=== PATIENT | male | born 1980 | race Caucasian/White ===

== ENCOUNTER 2025-02-16 13:19 | Outpatient (CLI) | payer OTHER, SELFPAY ==
--- OUTSIDE RECORDS SUMMARY | 2025-02-16 14:20 | XMS_ITS | Encounter Summary ---
Author Organization [facility] Address [facility] [place] [address] Care Team Providers Care Livestock Nutrition Territory Manager Name Role Phone Non-Staff, Provider Primary Care Provider Narinder ravi Encounter Details Date Type Department Care Team (Late st Contact Info) Description 01/28/2025 Prep for Procedure [facility] [place] [address], [address] [place] [address] Owen Marmolejo MD [address] [place] [address] Social History Tobacco Use Types Packs/Day Years Used Date Smoking Tobacco: Never Smokeless Tobacco: Never Alcohol Use Standard Drinks/Week Comments Not Currently 0 (1 standard drink = 0.6 oz pur e alcohol) Sex and Gender Information Value Date Recorded Sex Assigned at Male 01/05/2025 10:37 AM PMP PROJECT MANAGER Legal Sex Male 1:39 PM CDT Gender Identity Not on file Sexual Orientation Not on file documented as of this encounter Plan of Treatment Not on file documented as of this encounter Visit Diagnoses Not on filedocumented in this encounter Care Teams Livestock Nutrition Territory Manager Relationship Specialty Start Date End Date Non-Staff, Provider PCP - General UNKNOWN PHYSICIAN SPECIALTY 01/05/25 documented as of this encounter
--- OUTSIDE RECORDS SUMMARY | 2025-02-16 14:20 | XMS_ITS | Clinical Summary ---
Author Organization [facility] Address [facility] [place] [address] Care Team Providers Care Intermodal Customer Service Name Role Phone Non-Staff, Provider Primary Care Provider Unavai lable Allergies No known active allergies Medications pantoprazole EC (PROTONIX) 20 MG tablet Take 1 tablet (20 mg total) by mouth daily. 30 tablet 01/05/2025 Active traMADol (ULTRAM) 50 MG tablet Take 1 tablet (50 mg total) by mouth. 01/19/2025 Active Active Problems Problem Noted Date Diagnosed Date Melena 01/25/2025 Encounters Date Type Department Care Team Description 02/04/2025 Telephone [facility] General Surgery - [place] [address], [address] [place] [address] Owen Gama MD Results 02/01/2025 1:24 PM CDT Anesthesia Event [facility] [address] [place] [address] Izaiah Puente, Danny Land MD 02/01/2025 12:34 PM CDT - 02/01/2025 12:49 PM CDT Surgery [facility] [address] [place] [address] Owen Gama MD EGD WITH BIOPSIES ANTRUM AND GE JUNCTION 02/01/2025 11:48 AM CDT - 02/01/2025 2:30 PM CDT Hospital Encounter [facility] [address] [place], [place] [address] Owen Gama MD Discharge Disposition: Home or Self Care (Routine Discharge) 02/01/2025 Travel 01/28/2025 Prep for Procedure [facility] General Surgery - [place] [address], [address] [place] [address] Owen Gama MD 01/25/2025 Travel 01/25/2025 Telephone [facility] General Surgery - [place] [address] [place] [address], [address] [place] [address] Owen Gama MD Schedule Surgery 01/25/2025 Prep for Procedure [facility] Surgery - [place] [address] [place] [address], [address] [place] [address] Owen Gama MD 01/05/2025 11:26 AM REVENUE ACCOUNTANT - 01/05/2025 2:44 PM REVENUE ACCOUNTANT Emergency [facility] [place] [address] Bradley Mcclure, ALIS Blood In Stool Discharge Disposition: Home or Self Care (Routine Discharge) 01/05/2025 Transcribe Orders [facility] Pre Access Team [facility] [place] [address] Emmanuel Palacio PA-C 01/05/2025 Travel from Last 3 Months Family History Medical History Relation Comments Hypertension Father Relation Status Comments Father Social History Tobacco Use Types Packs/Day Years Used Date Smoking Tobacco: Never Smokeless Tobacco: Never Tobacco Cessation:Counseling Given: Not Answered Alcohol Use Standard Drinks/Week Comments Not Currently 0 (1 standard drink = 0.6 oz pur e alcohol) Sex and Gender Information Value Date Recorded Sex Assigned at Male 01/05/2025 10:37 AM REVENUE ACCOUNTANT Legal Sex Male 1:39 PM CDT Gender Identity Not on file Sexual Orientation Not on file Last Filed Vital Signs Vital Sign Reading Time Taken Comments Blood Pressure 119/83 02/01/2025 2:15 PM CDT Pulse 80 02/01/2025 2:15 PM CDT Temperature 36.6 C (97.8 F) 02/01/2025 2:00 PM CDT Respiratory Rate 18 02/01/2025 2:15 PM CDT Oxygen Saturation 97% 02/01/2025 2:15 PM CDT Inhaled Oxygen Concentration - - Weight 74.8 kg (165 lb) 02/01/2025 12:03 PM CDT Height 167.6 cm (5' 6) 02/01/2025 12:03 PM CDT Body Mass Index 26.63 02/01/2025 12:03 PM CDT Plan of Treatment Health Maintenance Due Date Last Done Comments Annual Physical 1985 Hepatitis C 2000 COVID-19 Vaccine (2 - season) 2024 03/23/2021 PHQ-2 (Physician [employer] [facility]) 11/04/2024 DTaP, Tdap and Td Vaccines (2 - Td or Tdap) 01/05/2025 01/05/2015, 01/08/2009, 01/18/2003 Hepatitis B Vaccines Completed 09/07/2003, 02/15/2003, 01/18/2003, Additional history exists Meningococcal Vaccine Aged Out 01/05/2015, 003 No longer eligible based on patient's age to complete this topic HPV Vaccines Aged Out No longer eligi ble based on patient's age to complete this topic Meningococcal B Vaccine Aged Out No l onger eligible based on patient's age to complete this topic Pneumococcal Vaccine: Pediatrics (0 to 5 Years) and At-Risk Patients (6 to 49 Years) Aged Out No longer eligible based on patient's age to complete this topic RSV Immunizations Under 20 Months Aged Out No longer eligible based on patient's age to complete this topic Procedures Procedure Name Priority Date/Time Associated Diagnosis Comments UPPER GI ENDOSCOPY,BIOPSY 02/01/2025 1:24 PM CDT Melena EGD Routine 02/01/2025 11:52 AM CDT PATHOLOGY Routine 02/01/2025 12:[address] ABD+PEL W CON STAT 01/05/2025 1:29 PM REVENUE ACCOUNTANT LACTIC ACID W REFLEX (SEPSIS) STAT 01/05/2025 12:16 PM REVENUE ACCOUNTANT LIPASE STAT 01/05/2025 12:16 PM REVENUE ACCOUNTANT COMPREHENSIVE METABOLIC PANEL STAT 01/05/2025 12:16 PM REVENUE ACCOUNTANT CBC W/DIFF AUTOMATED STAT 01/05/2025 12:16 PM REVENUE ACCOUNTANT US TESTICULAR W DOPPLER STAT 01/05/2025 12:14 PM REVENUE ACCOUNTANT from Last 3 Months Results * Pathology (02/01/2025 12:00 AM CDT) PATHOLOGY [facility] Department of Laboratory Medicine [address] [place] [address] , extension [phone] Pathology Report Surgical Pathology Report Name: PEEWEE KHAN Specimen #: [id number] Age: 1 1980 (Age: 44) Location: [facility] Sex: M Procedure Date: 02/01/2025 Hospital #: [id number] Date Received: 02/02/2025 Date Reported: 02/03/2025 Provider: OWEN GAMA MD Source: A: Antrum, biopsies B: GE junction, biopsies Clinical History: Melanoma Postoperative Diagnosis: Rule out H. pylori FINAL DIAGNOSIS: A. Stomach, antrum, biopsies: -Gastric antral and body type mucosa with no significant histopathologic abnormality. -No Helicobacter pylori organisms are identified. B. Esophagus, gastroesophageal junction, biopsies: -Squamocolumnar junctional mucosa with patchy chronic inflammation and mild reactive changes. -Negative for intestinal metaplasia. Gross Description: A. Received in formalin, labeled with a patient label and as antrum biopsies, are 2 portions of pink-owen soft tissue that are 0.2 and 0.3 cm in greatest dimension. The specimen is entirely submitted in cassette A1. B. Received in formalin, labeled with a patient label and as GE junction biopsies, are 2 portions of pink-owen soft tissue that are both 0.2 cm in greatest dimension. The specimen is entirely submitted in cassette B1. Gross examination (when applicable), interpretation, and sign out were performed at [facility], [address] [place] [address]. Electronically Signed Out JULIANA GARCIA MD [facility] TISSUE STOMACH STRUCTURE / Unknown 02/01/2025 1:30 PM CDT Tissue specimen (specimen) STOMACH STRUCTURE / Unknown 02/01/2025 1:32 PM CDT Owen Gama MD PATHOLOGY/CYTOLOGY ORDERABL ES Final Result [facility] [address] [place] [address], [phone] * CT ABD+PEL W CON (01/05/2025 1:29 PM REVENUE ACCOUNTANT) Anatomical Region Laterality Modality Abdomen Computed Tomogra phy 01/05/2025 1:32 PM REVENUE ACCOUNTANT Impressions 01/05/2025 1:40 PM REVENUE ACCOUNTANT Impression: 1. No acute other convincing localizing findings seen to provide a potential explanation for the patient's symptoms on this study 2. Colonic diverticulosis without inflammatory changes of acute diverticulitis. No other significant gastrointestinal tract finding. 3. Multiple hepatic lesions that may represent a combination of the flash filling and possible appearing hemangiomas; the largest lesion measuring 4.4 cm has a slightly atypical enhancement pattern on this single phase study. Recommend confirmation, further workup with MRI abdomen with contrast. 4. Advanced L4-5, moderate L5-S1 disc degeneration, moderately severe left hip osteoarthritis and right hip total arthroplasty. 5. Other nonemergent, incidental, and potential chronic findings as discussed in the report body above. Ordered By: BRADLEY MCCLURE Interpreted By: Sudhir Hare MD, 01/05/2025 1:32 PM Narrative 01/05/2025 1:40 PM REVENUE ACCOUNTANT [facility] [address] [place], [place] [address] Examination: CT abdomen and pelvis with IV contrast. Exam Date/Time: 01/05/2025 1:23 PM Indication: 44 male. blood in stool Comparison: Ultrasound scrotum 01/05/2025 Technique: Computed tomography of the abdomen and pelvis performed following uneventful intravenous administration of 100 mL Isovue-300 contrast. A dose lowering technique was used for this procedure, which may include, but is not limited to, dose reduction technique, automated exposure control, the use of iterative reconstruction, and ALARA (As Low As Reasonably Achievable) / Image Gently techniques. CT Findings: LOWER CHEST Normal cardiac size. No pericardial or pleural effusion. Clear lung bases. UPPER ABDOMEN Liver and bile ducts: Normal size contour and enhancement. Right hepatic dome 1.2 cm and larger 4.4 cm hepatic segment 4B hypoenhancing lesions a. These probably represent hemangiomas although larger lesion is slightly atypical enhancement pattern on this study and further imaging workup is recommended. A more inferior right hepatic lobe 1.4 cm hyperenhancing focus may represent a flash filling hemangioma. Hepatic and portal venous systems are patent. No intra or extrahepatic biliary tree dilatation. Gallbladder: Present and unremarkable. No calcific cholelithiasis or inflammation. Pancreas: Normal. Spleen: Normal. RETROPERITONEUM Adrenals: Normal. Kidneys: Bilateral normal size, contour and enhancement. No suspicious focal finding, collecting system obstruction or perinephric stranding. Lymph nodes: No lymphadenopathy in the abdomen or pelvis. BOWEL AND PERITONEUM Bowel: Normal in caliber and wall thickness. Normal noninflamed appendix. Distal left and sigmoid colon diverticulosis without inflammatory changes of acute diverticulitis. Free air or fluid: None. VASCULATURE Unremarkable abdominal aorta. No atherosclerosis. No aneurysm. Mesenteric and visceral branches are patent. PELVIS History chiropractic from right total hip arthroplasty. Unremarkable nondistended urinary bladder. Few small pelvic phlebolithic calcifications. BONES/SOFT TISSUES Right total hip arthroplasty. Moderately severe left hip osteoarthritis. Lumbar spine straightening with moderately severe L4-5 and moderate L5-S1 disc degeneration. No concerning focal osteolytic or blastic lesion. Procedure Note Sudhir Hare MD - 01/05/[address] [address] Examination: CT abdomen and pelvis with IV contrast. Exam Date/Time: 01/05/2025 1:23 PM Indication: 44 male. blood in stool Comparison: Ultrasound scrotum 01/05/2025 Technique: Computed tomography of the abdomen and pelvis performedfollowing uneventful intravenous administration of 100 mL Isovue-300contrast. A dose lowering technique was used for this procedure, which mayinclude, but is not limited to, dose reduction technique, automatedexposure control, the use of iterative reconstruction, and ALARA (As LowAs Reasonably Achievable) / Image Gently techniques. CT Findings: LOWER CHEST Normal cardiac size. No pericardial or pleural effusion. Clear lungbases. UPPER ABDOMEN Liver and bile ducts: Normal size contour and enhancement. Right hepaticdome 1.2 cm and larger 4.4 cm hepatic segment 4B hypoenhancing lesions a.These probably represent hemangiomas although larger lesion is slightlyatypical enhancement pattern on this study and further imaging workup isrecommended. A more inferior right hepatic lobe 1.4 cm hyperenhancingfocus may represent a flash filling hemangioma. Hepatic and portal venous systems are patent. No intra or extrahepaticbiliary tree dilatation. Gallbladder: Present and unremarkable. No calcific cholelithiasis orinflammation. Pancreas: Normal. Spleen: Normal. RETROPERITONEUM Adrenals: Normal. Kidneys: Bilateral normal size, contour and enhancement. No suspiciousfocal finding, collecting system obstruction or perinephric stranding. Lymph nodes: No lymphadenopathy in the abdomen or pelvis. BOWEL AND PERITONEUM Bowel: Normal in caliber and wall thickness. Normal noninflamed appendix.Distal left and sigmoid colon diverticulosis without inflammatory changesof acute diverticulitis. Free air or fluid: None. VASCULATURE Unremarkable abdominal aorta. No atherosclerosis. No aneurysm. Mesentericand visceral branches are patent. PELVIS History chiropractic from right total hip arthroplasty. Unremarkablenondistended urinary bladder. Few small pelvic phlebolithiccalcifications. BONES/SOFT TISSUES Right total hip arthroplasty. Moderately severe left hip osteoarthritis. Lumbar spine straightening with moderately severe L4-5 and moderate L5-S1disc degeneration. No concerning focal osteolytic or blastic lesion. Impression: 1. No acute other convincing localizing findings seen to provide apotential explanation for the patient's symptoms on this study 2. Colonic diverticulosis without inflammatory changes of acutediverticulitis. No other significant gastrointestinal tract finding. 3. Multiple hepatic lesions that may represent a combination of the flashfilling and possible appearing hemangiomas; the largest lesion measuring4.4 cm has a slightly atypical enhancement pattern on this single phasestudy. Recommend confirmation, further workup with MRI abdomen withcontrast. 4. Advanced L4-5, moderate L5-S1 disc degeneration, moderately severe lefthip osteoarthritis and right hip total arthroplasty. 5. Other nonemergent, incidental, and potential chronic findings asdiscussed in the report body above. Ordered By: BRADLEY MCCLURE Interpreted By: Sudhir Hare MD, 01/05/2025 1:32 PM Bradley Mcclure TAILER OUT CT Final Result * LACTIC ACID W REFLEX (SEPSIS) (01/05/2025 12:16 PM REVENUE ACCOUNTANT) LACTIC ACID VENOUS 1.2 0.4 - 2.0 MMOL/L 01/05/2025 12:53 PM REVENUE ACCOUNTANT [facility] 01/05/2025 12:1 6 PM REVENUE ACCOUNTANT Bradley Mcclure TAILER OUT LABORATORY Final Result [facility] [address] [place] [address], [place] [phone] * COMPREHENSIVE METABOLIC PANEL (01/05/2025 12:16 PM REVENUE ACCOUNTANT) GLUCOSE 96 70 - 99 MG/DL 01/05/2025 1:05 PM REVENUE ACCOUNTANT [facility] BUN 10 7 - 18 MG/DL 01/05/2025 1:05 PM REVENUE ACCOUNTANT [facility] CREATININE S/P/B 1.00 0.7 - 1.3 MG/DL 01/05/2025 1:05 PM REVENUE ACCOUNTANT [facility] SODIUM S/P/B 136 136 - 145 MMOL/L 01/05/2025 1:05 PM REVENUE ACCOUNTANT [facility] POTASSIUM S/P/B 3.8 3.5 - 5.1 MMOL/L 01/05/2025 1:05 PM [facility] CHLORIDE S/P/B 102 97 - 115 MMOL/L 01/05/2025 1:05 PM [facility] CO2 31.0 21 - 32 MMOL/L 01/05/2025 1:05 PM [facility] CALCIUM S/P/B 9.2 8.5 - 10.1 MG/DL 01/05/2025 1:05 PM [facility] BILIRUBIN TOTAL S/P/B 0.4 0.2 - 1.2 MG/DL 01/05/2025 1:05 PM [facility] Comment: THIS ASSAY IS NOT RECOMMENDED FOR PATIENTS UNDERGOING TREATMENT WITH ELTROMBOPAG DUE TO THE POTENTIAL FOR FALSELY ELEVATED RESULTS. TOTAL PROTEIN S/P/B 7.9 6.4 - 8.2 G/DL 01/05/2025 1:05 PM [facility] ALBUMIN S/P/B 4.1 3.4 - 5.0 G/DL 01/05/2025 1:05 PM [facility] AST 26 15 - 37 U/L 01/05/2025 1:05 PM [facility] ALT 44 16 - 60 U/L 01/05/2025 1:05 PM [facility] ALKALINE PHOSPHATASE S/P/B 86 50 - 136 U/L 01/05/2025 1:05 PM [facility] ANION GAP 3.0 2 - 10 MMOL/L 01/05/2025 1:05 PM [facility] BUN CREATININE RATIO 10.0 6 - 26 01/05/2025 1:05 PM [facility] A/G RATIO 1.1 1.0 - 2.0 RATIO 01/05/2025 1:05 PM [facility] GFR ESTIMATE >90 >90 ML/MIN/1.7 3 M2 01/05/2025 1:05 PM REVENUE ACCOUNTANT [facility] Comment: NOTE: eGFR is not calculated for patients <18 years of age or gender unknown. This is an estimated GFR calculation using the new CKD EPI creatinine equation without race and so does not require a correction factor for race. This estimated GFR should not be used for calculating drug doses. 01/05/2025 12:1 6 PM REVENUE ACCOUNTANT Bradley Mcclure NP LABORATORY Final Result [facility] [address] [place] [address], * (ABNORMAL) CBC W/DIFF AUTOMATED (01/05/2025 12:16 PM REVENUE ACCOUNTANT) WBC 7.91 4.5 - 11.0 x10'3/uL 01/05/2025 12:40 PM REVENUE ACCOUNTANT [facility] RBC 4.76 4.70 - 6.10 x10'6/uL 01/05/2025 12:40 PM [facility] HGB 14.2 14.0 - 18.0 G/DL 01/05/2025 12:40 PM [facility] HCT 41.4(L) 43.0 - 54.0 % 01/05/2025 12:40 PM REVENUE ACCOUNTANT [facility] MCV 87.0 80.0 - 94.0 FL 01/05/2025 12:40 PM REVENUE ACCOUNTANT [facility] MCH 29.8 27.0 - 31.0 PG 01/05/2025 12:40 PM REVENUE ACCOUNTANT [facility] MCHC 34.3 32.0 - 36.0 G/DL 01/05/2025 12:40 PM [facility] RDW 11.9 11.5 - 14.5 % 01/05/2025 12:40 PM [facility] PLT 281 130 - 400 x10'3/uL 01/05/2025 12:40 PM [facility] MPV 10.5 9.3 - 12.2 FL 01/05/2025 12:40 PM [facility] DIFFERENTIAL TYPE AUTOMATED DIFFERENTIAL 01/05/2025 12:40 PM [facility] NEUTROPHILS % 70.7 % 01/05/2025 12:40 PM [facility] LYMPHOCYTES % 20.5 % 01/05/2025 12:40 PM [facility] MONOCYTES % 6.7 % 01/05/2025 12:40 PM [facility] EOSINOPHILS 1.5 % 01/05/2025 12:40 PM [facility] BASOPHILS 0.3 % 01/05/2025 12:40 PM [facility] IMMATURE GRANS % 0.3 % 01/06/20 12:40 PM [facility] ABS. NEUTROPHILS 5.60 1.80 - 7.70 x10'3/uL 01/05/2025 12:40 PM [facility] ABS. LYMPHOCYTES 1.62 1.00 - 4.80 x10'3/uL 01/05/2025 12:40 PM [facility] ABS. MONOCYTES 0.53 0.30 - 0.82 x10'3/uL 01/05/2025 12:40 PM REVENUE ACCOUNTANT [facility] ABS. EOSINOPHILS 0.12 0.04 - 0.54 x10'3/uL 01/05/2025 12:40 PM [facility] ABS. BASOPHILS 0.02 0.01 - 0.08 x10'3/uL 01/05/2025 12:40 PM [facility] ABS. IMMATURE GRANULOCYTES 0.02 0.00 - 0.49 x10'3/uL 01/05/2025 12:40 PM REVENUE ACCOUNTANT [facility] 01/05/2025 12:1 6 PM REVENUE ACCOUNTANT us Bradley Mcclure TAILER OUT LABORATORY Final Result Performing Organization Address [facility]/ZIP Co de Phone Number [facility] [address] [place] [address], [place] [phone] * LIPASE (01/05/2025 12:16 PM REVENUE ACCOUNTANT) LIPASE 35 13 - 75 UNITS/L 01/05/2025 1:05 PM REVENUE ACCOUNTANT [facility] 01/05/2025 12:1 6 PM REVENUE ACCOUNTANT Bradley Mcclure TAILER OUT LABORATORY Final Result Performing Organization Address [facility] Co de Phone Number [facility] [address] [place] [address], [place] [phone] * US TESTICULAR W DOPPLER (01/05/2025 12:14 PM REVENUE ACCOUNTANT) Anatomical Region Laterality Modality Pelvis Ultrasound 01/05/2025 12:2 5 PM REVENUE ACCOUNTANT Impressions 01/05/2025 12:35 PM REVENUE ACCOUNTANT =====IMPRESSION:===== Testes are sonographically unremarkable. No acute findings. Ordered By: BRADLEY MCCLURE Interpreted By: Lyle Becerril MD, 01/05/2025 12:25 PM Narrative 01/05/2025 12:35 PM REVENUE ACCOUNTANT [facility] [address] [place], [place] [address] Exam date/time: 01/05/2025 11:20 AM Examination: Ultrasound testicular with Doppler Reason For Exam: Left-sided testicular mass Comparison: None. Findings: Right testis measures 4.5 x 4.1 x 2.2 cm and is sonographically unremarkable. No discrete testicular lesion. Epididymis is unremarkable. Mild prominence of the ductus deferens noted. Minimal fluid in the tunica vaginalis, within physiologic limits. No significant hydrocele or varicocele. Left testis measures 4.7 x 2.2 x 3.4 cm and is sonographically unremarkable. No discrete testicular lesion. Minimal fluid in the tunica vaginalis. Epididymis is unremarkable. No significant hydrocele or varicocele. Intact testicular blood flow is shown bilaterally using color Doppler and spectral Doppler analysis. No hyperemia or torsion. Procedure Note Lyle Becerril MD - 01/05/[address] [address] Exam date/time: 01/05/2025 11:20 AM Examination: Ultrasound testicular with Doppler Reason For Exam: Left-sided testicular mass Comparison: None. Findings: Right testis measures 4.5 x 4.1 x 2.2 cm and is sonographicallyunremarkable. No discrete testicular lesion. Epididymis is unremarkable.Mild prominence of the ductus deferens noted. Minimal fluid in the tunicavaginalis, within physiologic limits. No significant hydrocele orvaricocele. Left testis measures 4.7 x 2.2 x 3.4 cm and is sonographicallyunremarkable. No discrete testicular lesion. Minimal fluid in the tunicavaginalis. Epididymis is unremarkable. No significant hydrocele orvaricocele. Intact testicular blood flow is shown bilaterally using color Doppler andspectral Doppler analysis. No hyperemia or torsion. =====IMPRESSION:===== Testes are sonographically unremarkable. No acute findings. Ordered By: BRADLEY MCCLURE Interpreted By: Lyle Becerril MD, 01/05/2025 12:25 PM us Bradley Maribeth Mcclure TAILER OUT ULTRASOUND Final Result from Last 3 Months Insurance Care Teams [employer] Customer Service Relationship Specialty Start Date End Date Non-Staff, Provider PCP - General UNKNOWN PHYSICIAN SPECIALTY 01/05/25
--- OUTSIDE RECORDS SUMMARY | 2025-02-16 14:20 | XMS_ITS | Patient Health Record ---
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 PRIOR TO [id number] [facility] [id number] [place], [place] [id number] Kurt Khan Self - patient is the insured 1 1 Medical (General) History Medical History History ICD Code Osteoarthritis Surgical History Surgery Date(Month/Year) Vasectomy Scheduled for Rt. Total hip replacement 01/2021 Hospitalization History Reason Date(Month/Year) see surgeries
--- OUTSIDE RECORDS SUMMARY | 2025-02-16 14:20 | XMS_ITS | Clinical Summary ---
Author Organization [facility] [employer] Address [address] [place] [address] Care Team Providers Care Meter Changes Records Clerk Name Role Phone [facility], [address] [place] [address] Primary Care Prov ider Source Comments [facility],non-owned Affiliates and Associated Physician Practices is amultiple site organization consisting of ambulatory clinics and hospital sitesin [place] and [place]. This disclosure is being madepursuant to the Care Everywhere program and may not contain all information available regarding this patient. Last updated 18.[facility] [employer] Allergies No known active allergies Medications * Be aware that medications may not be up to date on this document. Alwaysverify current medications with the patient. pantoprazole EC (Protonix) 40 MG tablet Take 1 (one) tablet by mouth 01/12/2025 5 Active traMADol (Ultram) 50 MG tablet Take 1 (one) tablet by mouth 01/19/2025 5 Active Active Problems Problem Noted Date Diagnosed Date Osteoarthritis of left hip 01/19/2025 Overview (01/19/2025): Premature osteoarthritis of Lt hip and both glenohumeral shoulder joints. No appearance to suggest osteonecrosis or other metabolic joint disease. Needs Lt BORIS. Osteoarthritis of both shoulders 01/19/2025 Overview (01/19/2025): Premature osteoarthritis of Lt hip and both glenohumeral shoulder joints. No appearance to suggest osteonecrosis or other metabolic joint disease. Encounters Date Type Department Care Team Description 01/19/2025 2:20 PM CDT Office Visit [facility] - Rheumatology [address] [place] [address] Bobby Pal DO Osteoarthritis of left hip, unspecified osteoarthritis type (Primary Dx); Osteoarthritis of both shoulders, unspecified osteoarthritis type; Elevated sedimentation rate; Elevated C-reactive protein (CRP) 01/14/2025 Telephone [facility] - Rheumatology [address], [address] [place] [address] Bobby Pal DO Scheduling; Referral from Last 3 Months Social History Tobacco Use Types Packs/Day Years Used Date Smoking Tobacco: Never Assessed PHQ-2 Answer Date Recorded Patient Health Questionnaire-2 Score 0 01/19/2025 Sex and Gender Information Value Date Recorded Sex Assigned at Not on file Legal Sex Male 10:49 AM CDT Gender Identity Not on file Sexual Orientation Not on file Last Filed Vital Signs Vital Sign Reading Time Taken Comments Blood Pressure 108/76 01/19/2025 2:04 PM CDT Pulse 105 01/19/2025 2:04 PM CDT Temperature 36.1 C (97 F) 01/19/2025 2:04 PM CDT Respiratory Rate 16 01/19/2025 2:04 PM CDT Oxygen Saturation 98% 01/19/2025 2:04 PM CDT Inhaled Oxygen Concentration - - Weight 76.7 kg (169 lb) 01/19/2025 2:04 PM CDT Height - - Body Mass Index - - Plan of Treatment Health Maintenance Due Date Last Done Comments LIPID TESTING 1982 HIV SCREENING 1997 HEPATITIS C SCREENING 11/28/2000 DTAP/TDAP/TD VACCINES (1 - Tdap) 2001 HEPATITIS B VACCINE (1 of 3 - 19+ 3-dose series) 2001 COVID-19 VACCINE (2 - season) 2024 03/23/2021 INFLUENZA VACCINE (Season Ended) 2025 09/19/2020, 09/22/2019, 09/08/2019, Additional history exists ZOSTER VACCINE (1 of 2) 2032 DEPRESSION SCREENING Completed 01/19/2025 HIB VACCINE Aged Out No longer eligi ble based on patient's age to complete this topic HPV VACCINE Aged Out No longer eligi ble based on patient's age to complete this topic MENINGOCOCCAL (Group B) VACCINE SHARED DECISION-MAKING Aged Out No longer eligible based on patient's age to complete this topic MENINGOCOCCAL GROUPS A/C/Y/W VACCINE Aged Out No longer eligible based on patient's age to complete this topic PNEUMOCOCCAL VACCINE Aged Out No long er eligible based on patient's age to complete this topic Procedures Procedure Name Priority Date/Time Associated Diagnosis Comments ERYTHROCYTE SEDIMENTATION RATE (EXT RESULT) Routine 12/30/2024 4:12 PM STRIKER OUT C-REACTIVE PROTEIN Routine 12/30/2024 4: 12 PM STRIKER OUT from Last 3 Months Results * ERYTHROCYTE SEDIMENTATION RATE (EXT RESULT) (12/30/2024 4:12 PM STRIKER OUT) Blood BLOOD SPECIMEN / Unknown us Scanned Document LAB - HEMATOLOGY ORDERABLES Fin al Result * C-REACTIVE PROTEIN (12/30/2024 4:12 PM STRIKER OUT) Blood BLOOD SPECIMEN / Unknown us Scanned Document LAB - CHEMISTRY ORDERABLES Nallely l Result from Last 3 Months Insurance [facility] Care Teams Meter Changes Records Clerk Relationship Specialty Start Date End Date [facility], [facility] [address] [place] [address] PCP - General Family Medicine 01/19/25
[2025-02-16 15:08] LABS: Hemoglobin A1C 5.5 % (<5.7); Urine Cotinine NEGATIVE
[2025-02-16 15:13] LABS: Albumin Level 4.8 g/dL (3.5-5.1); Estimated Glomerular Filt Rate > 60; Glucose 107 mg/dL (65-110)
[2025-02-16 16:25] LABS: MRSA (PCR) DETECTED (NOT DETECTE)
== END 2025-02-16 13:20 | disposition home or self-care (01) ==
LOC: ANHSURGERY 13:24
PROVIDERS: Visit Provider Orthopaedic Surgery
DX: Z01.812 Encounter for preprocedural laboratory examination (principal); M16.12 Unilateral primary osteoarthritis, left hip
CPT/HCPCS: 80307; 82040; 82565; 82947; 83036; 86850; 86900; 86901; 87641

== ENCOUNTER 2025-03-01 01:11 | Day surgery (SDC) | payer OTHER, SELFPAY ==
--- NOTE | 2025-02-16 13:37 | PC.NURSE ---
Report to the Outpatient Waiting Room, entrance under the green pavilion located off [facility], at time __6:00AM on date __03/01/25 . Planned Procedure Time: ___7:30AM .? Time changes happen often and if your time is changed the preop area will call you the afternoon before. - You and your visitor will be asked to self-screen and do not enter if you have any COVID symptoms. Please call surgeon if you need to reschedule. - A mask is optional within the hospital at this time. Patients may have clear liquids (water, carbonated beverages, clear teas, apple juice) until 3 hours prior to surgery (4:30AM) with a maximum of 20 ounces. - No food from midnight until time of surgery and no smoking, or chewing tobacco (or any form of nicotine). No chewing gum, candy or mints. Take only the following medications with a SIP of water on the morning of surgery: TRAMADOL NEEDED FOR PAIN DO NOT STOP ANY OF YOUR OTHER PRESCRIPTION MEDICATIONS PRIOR TO SURGERY EXCEPT THE FOLLOWING Hold all vitamins and supplements for 3 days per anesthesiologist.- LAST DOSE 02/25/25 Please no make-up, nail norwegian, hairspray, perfume, deodorant, or body powder the day of surgery.? No jewelry (including any body piercings) or valuables the day of surgery, leave them at home.? Please take a shower or bath the night before, or the morning of, surgery with an antibacterial soap.? Wear comfortable, loose fitting clothing.? - Jewelry must be removed prior to entering the operating room.? Rings and piercings that are not removed may be cut off. - The hospital will not accept responsibility for valuables.? - Please leave all valuables, including medications, at home the day of surgery. If you are going home after surgery, a licensed milk delivery driver must drive you home.? - NO public transportation without another adult if you receive anesthesia. - We recommend that an adult stay with you for 24 hours following discharge. - We also recommend that you do not drive, make important decision, drink alcoholic beverages, or take any drugs that were not prescribed by your health care provider for at least 24 hours after your discharge time. Follow any additional instructions given to you from your surgeon. Telephone instructions given to ___PATIENT and asked if any additional questions and then verbalized understanding. Patient advised to call surgeon office or pre surgery nurse liaison [phone] if any additional questions.
[2025-02-16 13:52] VITALS: BP 124/83; PULSE 91; RESP 16; TEMP 36.8; O2SAT 100; BMI 27.3
--- NOTE | 2025-02-23 10:39 | PM.IMHP ---
H&P: HPI History of Present Illness Date/Time: 02/23/25 10:39 Chief Complaint: Patient has osteoarthritis left hip. This has been unresponsive to conservative care. He would like to proceed with hip replacement surgery. He has had a hip replacement done on his contralateral right side. Review of Systems Musculoskeletal: Musculoskeletal: Reports myalgias, Reports arthralgias, Reports joint swelling and Reports stiffness Neurologic: Reports abnormal gait [facility] Surgical History Surgical History (Updated 01/26/25 @ 13:31 by Julio Leong MD) History of hip replacement right Social History Social History (Updated 01/26/25 @ 13:19 by Karen Russell CMA) Smoking status: Former smoker Tobacco type: e-cigarettes/vaping Additional smoking assessment comments: MOSTLY STOPPED VAPING, LITTLE AMT LAST WEEK. STARTED ABOUT 1 1/2 YRS AGO. Alcohol intake: never Substance use: never Current Housing: Decline to Answer Concerned About Future Housing: Decline to Answer Difficulty Paying Gas/Electric Bills: Decline to Answer Difficulty Paying for Meds: Decline to Answer Currently Unemployed: Decline to Answer Education: Decline to Answer Difficulty w/ Childcare or Family Care: Decline to Answer Living arrangements: with family Additional living arrangements comments: [facility] Spiritual care concerns: No Meds Home Medications and Allergies Home Medications ?Medication ?Instructions ?Recorded ?Confirmed ?Type pantoprazole 40 mg tablet,delayed 40 mg PO QAM 01/26/25 02/16/25 History release tramadol 50 mg tablet 50 mg PO Q6H PRN pain 01/26/25 02/16/25 History hydrocortisone 1 % topical cream 1 applic topical BID PRN itching 02/16/25 02/16/25 History (Anti-Itch (hydrocortisone)) multivitamin (Daily Multi-Vitamin 1 tablet PO DAILY 02/16/25 02/16/25 History tablet) mupirocin 2 % topical ointment 1 applic topical BID #22 grams 02/18/25 02/18/25 Rx (Cent[facility]) Allergies Allergy/AdvReac Type Severity Reaction Status Date / Time No Known Allergies Allergy Unverified 02/16/25 13:46 Exam Narrative: On exam he has internal rotation of his left hip 0 external rotation about 10 a positive Stinchfield test and pain with manipulation. He walks with an antalgic gait. Neurologically he is intact. Eyes: General: appearance normal, both eyes and all related structures Neck: Neck: supple Resp: Effort & Inspection: normal respiratory effort Cardio: Rate: regular rate Rhythm: regular rhythm No Data to Display Assessment and Plan Assessment and plan (1) Osteoarthritis of left hip: Code(s): M16.12 - Unilateral primary osteoarthritis, left hip Status: Acute Assessment and Plan: Patient has an arthritic left hip. It is [id number]. He has failed conservative treatment like to proceed with hip replacement surgery. I discussed risks, benefits, limitations, and alternatives in detail with the patient he understands and agrees and would like to proceed. Of note is the fact he has a total hip arthroplasty on the right the same problem.
[2025-03-01] VITALS (18 sets, daily range): BP systolic 98–133; BP diastolic 58–91; PULSE 86–128; RESP 11–20; TEMP 36.3–37.2; O2SAT 94–100
--- NOTE | ~2025-03-01 | XR_ITS ---
SINGLE AP VIEW PELVIS Ordering provider: Julio Leong MD History: . LEFT TOTAL HIP . Comparison: None . FINDINGS: BONES: No acute fracture or dislocation. HIP JOINT SPACES: Bilateral hip arthroplasty. SACROILIAC JOINT SPACES/LUMBAR SPINE: The sacroiliac joint spaces are normal. Mild degenerative sequeira es of the visualized lower lumbar spine. PUBIC SYMPHYSIS: Normal. SOFT TISSUES: Normal. IMPRESSION: No acute osseous abnormality pelvis. Bilateral hip arthroplasty. Reviewed, dictated and finalized at location A.
--- NOTE | ~2025-03-01 | XR_ITS ---
EXAMINATION: XR surgery orthopedic DATE: 03/01/2025 09:15 INDICATION: Intraoperative assessment during left total hip arthroplasty TECHNIQUE: 2 views of the bilateral hips excluding the more cephalad pelvis were obtained during proc edure performed by Dr. Leong. Radiologist was not present for the imaging or procedure. COMPARISON: 12/28/2024 FINDINGS: Unchanged right total hip arthroplasty which remains in near-anatomic alignment with no periprostheti c lucency to suggest loosening or infection. Interval placement of a left total hip arthroplasty with acetabular component affixed with at least a single screw as well as a femoral broach on the initial image. The arthroplasties completed with placement of the broach with a femoral component on the fin al image. Alignment appears near-anatomic. No fractures identified. There are residual prominent jerad inal osteophytes about the left acetabulum. Expected postoperative soft tissue gas about the left hip . IMPRESSION: 1. Expected appearance during left total hip arthroplasty which appears in near-anatomic alignment wi th no acute osseous abnormality. See procedure note for further detail. Reviewed, dictated and finalized at location B. IMPRESSION: 1. Expected appearance during left total hip arthroplasty which appears in near -anatomic alignment with no acute osseous abnormality. See procedure note for f urther detail.
--- OUTSIDE RECORDS SUMMARY | 2025-03-01 01:42 | XMS_ITS | Encounter Summary ---
Author Organization [facility] Address [facility] [place] [address] Care Team Providers Care Conveyor Attendant Name Role Phone Non-Staff, Provider Primary Care Provider Narinder ravi Encounter Details Date Type Department Care Team (Late st Contact Info) Description 01/28/2025 Prep for Procedure [facility] Medical [facility] General Surgery - [place] [address], [address] [place] [address] Owen Marmolejo MD [address] [place] [address] Social History Tobacco Use Types Packs/Day Years Used Date Smoking Tobacco: Never Smokeless Tobacco: Never Alcohol Use Standard Drinks/Week Comments Not Currently 0 (1 standard drink = 0.6 oz pur e alcohol) Sex and Gender Information Value Date Recorded Sex Assigned at Male 01/05/2025 10:37 AM 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
--- OUTSIDE RECORDS SUMMARY | 2025-03-01 01:42 | XMS_ITS | Clinical Summary ---
Author Organization [facility] Address [facility] [place] [address] Care Team Providers Care Coal Hauler Name Role Phone Non-Staff, Provider Primary Care [...] Type Department Care Team Description 02/04/2025 Telephone [facility] General Surgery - [place] [address], [address] [place] [address] Owen Gama MD Results 02/01/2025 1:24 PM CDT Anesthesia Event [facility] [address] [place] [address] Izaiah Puente, Danny Land MD 02/01/2025 12:34 PM CDT - 02/01/2025 12:49 PM CDT Surgery [facility] [address] [place] [address] Owen Gama MD EGD WITH BIOPSIES ANTRUM AND GE JUNCTION 02/01/2025 11:48 AM CDT - 02/01/2025 2:30 PM CDT Hospital Encounter [facility] [address] [place], [place] [address] Owen Gama MD Discharge Disposition: Home or Self Care (Routine Discharge) 02/01/2025 Travel 01/28/2025 Prep for Procedure [facility] General Surgery - [place] [address], [address] [place] [address] Owen Gama MD 01/25/2025 Travel 01/25/2025 Telephone [facility] General Surgery - [place] [address] [place] [address], [address] [place] [address] Owen Gama MD Schedule Surgery 01/25/2025 Prep for Procedure [facility] Surgery - [place] [address] [place] [address], [address] [place] [address] Owen Gama MD 01/05/2025 11:26 AM PROTOZOOLOGIST - 01/05/2025 2:44 PM PROTOZOOLOGIST Emergency [facility] [place] [address] Bradley Mcclure, ALIS Blood In Stool Discharge Disposition: Home or Self Care (Routine Discharge) 01/05/2025 Transcribe Orders [facility] Pre Access Team [facility] [place] [address] Emmanuel Palacio PA-C 01/05/2025 Travel from Last [...] Sex Assigned at Male 01/05/2025 10:37 AM PROTOZOOLOGIST Legal Sex Male 1:39 PM CDT Gender [...] 12:03 PM CDT Height 167.6 cm (5' 6 ) 02/01/2025 12:03 PM CDT Body Mass Index 26.63 02/01/2025 12:03 PM CDT Plan of Treatment Health Maintenance Due Date Last Done Comments Annual Physical 1985 Hepatitis C 2000 COVID-19 Vaccine (2 - season) 2024 03/23/2021 PHQ-2 (Physician [place]) 11/04/2024 DTaP, Tdap and Td Vaccines (2 [...] ABD+PEL W CON STAT 01/05/2025 1:29 PM PROTOZOOLOGIST LACTIC ACID W REFLEX (SEPSIS) STAT 01/05/2025 12:16 PM PROTOZOOLOGIST LIPASE STAT 01/05/2025 12:16 PM PROTOZOOLOGIST COMPREHENSIVE METABOLIC PANEL STAT 01/05/2025 12:16 PM PROTOZOOLOGIST CBC W/DIFF AUTOMATED STAT 01/05/2025 12:16 PM PROTOZOOLOGIST US TESTICULAR W DOPPLER STAT 01/05/2025 12:14 PM PROTOZOOLOGIST from Last 3 Months Results * Pathology (02/01/2025 12:00 AM CDT) PATHOLOGY [facility] Department of Laboratory Medicine [address] [place] [address] , extension [phone] Pathology Report Surgical Pathology Report Name: PEEWEE KHAN Specimen #: [id number] Age: 1 1980 (Age: 44) Location: [facility] Sex: M Procedure Date: 02/01/2025 Hospital #: [id number] Date Received: 02/02/2025 Date Reported: 02/03/2025 Provider: [...] with a patient label and as antrum biopsies , are 2 portions of pink-owen soft tissue that are 0.2 and 0.3 cm in greatest dimension. The specimen is entirely submitted in cassette A1. B. Received in formalin, labeled with a patient label and as GE junction biopsies , are 2 portions of pink-owen soft tissue that are both 0.2 cm in greatest dimension. The specimen is entirely submitted in cassette B1. Gross examination (when applicable), interpretation, and sign out were performed at [facility], [address] [place] [address]. Electronically Signed Out JULIANA GARCIA MD [facility] TISSUE STOMACH STRUCTURE / Unknown 02/01/2025 1:30 PM CDT Tissue specimen (specimen) STOMACH STRUCTURE / Unknown 02/01/2025 1:32 PM CDT Owen Gama MD PATHOLOGY/CYTOLOGY ORDERABL ES Final Result [facility] [address] [place] [address], [id number] * CT ABD+PEL W CON (01/05/2025 1:29 PM PROTOZOOLOGIST) Anatomical Region Laterality Modality Abdomen Computed Tomogra phy 01/05/2025 1:32 PM PROTOZOOLOGIST Impressions 01/05/2025 1:40 PM PROTOZOOLOGIST Impression: 1. No acute other convincing localizing [...] 01/05/2025 1:32 PM Narrative 01/05/2025 1:40 PM PROTOZOOLOGIST [facility] [address] [place], [place] [address] Examination: CT abdomen and pelvis with IV [...] Procedure Note Sudhir Hare MD - 01/05/[address] [address] Examination: CT abdomen and pelvis with IV [...] Hare MD, 01/05/2025 1:32 PM Bradley Mcclure MANAGER E LEARNING CT Final Result * LACTIC ACID W REFLEX (SEPSIS) (01/05/2025 12:16 PM PROTOZOOLOGIST) LACTIC ACID VENOUS 1.2 0.4 - 2.0 MMOL/L 01/05/2025 12:53 PM PROTOZOOLOGIST [facility] 01/05/2025 12:1 6 PM PROTOZOOLOGIST Bradley Mcclure MANAGER E LEARNING LABORATORY Final Result [facility] [address] [place] [address], [place] [phone] * COMPREHENSIVE METABOLIC PANEL (01/05/2025 12:16 PM PROTOZOOLOGIST) GLUCOSE 96 70 - 99 MG/DL 01/05/2025 1:05 PM PROTOZOOLOGIST [facility] BUN 10 7 - 18 MG/DL 01/05/2025 1:05 PM PROTOZOOLOGIST [facility] CREATININE S/P/B 1.00 0.7 - 1.3 MG/DL 01/05/2025 1:05 PM PROTOZOOLOGIST [facility] SODIUM S/P/B 136 136 - 145 MMOL/L 01/05/2025 1:05 PM PROTOZOOLOGIST [facility] POTASSIUM S/P/B 3.8 3.5 - 5.1 MMOL/L 01/05/2025 1:05 PM [facility] CHLORIDE S/P/B 102 97 - 115 MMOL/L 01/05/2025 1:05 PM [facility] CO2 31.0 21 - 32 MMOL/L 01/05/2025 1:05 PM [facility] CALCIUM S/P/B 9.2 8.5 - 10.1 MG/DL 01/05/2025 1:05 PM [facility] BILIRUBIN TOTAL S/P/B 0.4 0.2 - 1.2 MG/DL 01/05/2025 1:05 PM [facility] Comment: THIS ASSAY IS NOT RECOMMENDED FOR PATIENTS UNDERGOING TREATMENT WITH ELTROMBOPAG DUE TO THE POTENTIAL FOR FALSELY ELEVATED RESULTS. TOTAL PROTEIN S/P/B 7.9 6.4 - 8.2 G/DL 01/05/2025 1:05 PM [facility] ALBUMIN S/P/B 4.1 3.4 - 5.0 G/DL 01/05/2025 1:05 PM [facility] AST 26 15 - 37 U/L 01/05/2025 1:05 PM [facility] ALT 44 16 - 60 U/L 01/05/2025 1:05 PM [facility] ALKALINE PHOSPHATASE S/P/B 86 50 - 136 U/L 01/05/2025 1:05 PM [facility] ANION GAP 3.0 2 - 10 MMOL/L 01/05/2025 1:05 PM [facility] BUN CREATININE RATIO 10.0 6 - 26 01/05/2025 1:05 PM [facility] A/G RATIO 1.1 1.0 - 2.0 RATIO 01/05/2025 1:05 PM [facility] GFR ESTIMATE >90 >90 ML/MIN/1.7 3 M2 01/05/2025 1:05 PM PROTOZOOLOGIST [facility] Comment: NOTE: eGFR is not calculated for patients <18 years of age or gender unknown. This is an estimated GFR calculation using the new CKD EPI creatinine equation without race and so does not require a correction factor for race. This estimated GFR should not be used for calculating drug doses. 01/05/2025 12:1 6 PM PROTOZOOLOGIST Bradley Mcclure NP LABORATORY Final Result [facility] [address] [place] [address], * (ABNORMAL) CBC W/DIFF AUTOMATED (01/05/2025 12:16 PM PROTOZOOLOGIST) WBC 7.91 4.5 - 11.0 x10'3/uL 01/05/2025 12:40 PM PROTOZOOLOGIST [facility] RBC 4.76 4.70 - 6.10 x10'6/uL 01/05/2025 12:40 PM [facility] HGB 14.2 14.0 - 18.0 G/DL 01/05/2025 12:40 PM [facility] HCT 41.4(L) 43.0 - 54.0 % 01/05/2025 12:40 PM PROTOZOOLOGIST [facility] MCV 87.0 80.0 - 94.0 FL 01/05/2025 12:40 PM PROTOZOOLOGIST [facility] MCH 29.8 27.0 - 31.0 PG 01/05/2025 12:40 PM PROTOZOOLOGIST [facility] MCHC 34.3 32.0 - 36.0 G/DL 01/05/2025 12:40 PM [facility] RDW 11.9 11.5 - 14.5 % 01/05/2025 12:40 PM [facility] PLT 281 130 - 400 x10'3/uL 01/05/2025 12:40 PM [facility] MPV 10.5 9.3 - 12.2 FL 01/05/2025 12:40 PM [facility] DIFFERENTIAL TYPE AUTOMATED DIFFERENTIAL 01/05/2025 12:40 PM [facility] NEUTROPHILS % 70.7 % 01/05/2025 12:40 PM [facility] LYMPHOCYTES % 20.5 % 01/05/2025 12:40 PM [facility] MONOCYTES % 6.7 % 01/05/2025 12:40 PM [facility] EOSINOPHILS 1.5 % 01/05/2025 12:40 PM [facility] BASOPHILS 0.3 % 01/05/2025 12:40 PM [facility] IMMATURE GRANS % 0.3 % 01/06/20 12:40 PM [facility] ABS. NEUTROPHILS 5.60 1.80 - 7.70 x10'3/uL 01/05/2025 12:40 PM [facility] ABS. LYMPHOCYTES 1.62 1.00 - 4.80 x10'3/uL 01/05/2025 12:40 PM [facility] ABS. MONOCYTES 0.53 0.30 - 0.82 x10'3/uL 01/05/2025 12:40 PM PROTOZOOLOGIST [facility] ABS. EOSINOPHILS 0.12 0.04 - 0.54 x10'3/uL 01/05/2025 12:40 PM [facility] ABS. BASOPHILS 0.02 0.01 - 0.08 x10'3/uL 01/05/2025 12:40 PM [facility] ABS. IMMATURE GRANULOCYTES 0.02 0.00 - 0.49 x10'3/uL 01/05/2025 12:40 PM PROTOZOOLOGIST [facility] 01/05/2025 12:1 6 PM PROTOZOOLOGIST us Bradley Mcclure MANAGER E LEARNING LABORATORY Final Result Performing Organization Address [facility]/ZIP Co de Phone Number [facility] [address] [place] [address], [place] [phone] * LIPASE (01/05/2025 12:16 PM PROTOZOOLOGIST) LIPASE 35 13 - 75 UNITS/L 01/05/2025 1:05 PM PROTOZOOLOGIST [facility] 01/05/2025 12:1 6 PM PROTOZOOLOGIST Bradley Mcclure MANAGER E LEARNING LABORATORY Final Result Performing Organization Address [facility] Co de Phone Number [facility] [address] [place] [address], [place] [phone] * US TESTICULAR W DOPPLER (01/05/2025 12:14 PM PROTOZOOLOGIST) Anatomical Region Laterality Modality Pelvis Ultrasound 01/05/2025 12:2 5 PM PROTOZOOLOGIST Impressions 01/05/2025 12:35 PM PROTOZOOLOGIST =====IMPRESSION:===== Testes are sonographically unremarkable. No acute findings. Ordered By: BRADLEY MCCLURE Interpreted By: Lyle Becerril MD, 01/05/2025 12:25 PM Narrative 01/05/2025 12:35 PM PROTOZOOLOGIST [facility] [address] [place], [place] [address] Exam date/time: 01/05/2025 11:20 AM Examination: Ultrasound [...] Procedure Note Lyle Becerril MD - 01/05/[address] [address] Exam date/time: 01/05/2025 11:20 AM Examination: Ultrasound [...] 01/05/2025 12:25 PM us Bradley Maribeth Mcclure MANAGER E LEARNING ULTRASOUND Final Result from Last 3 Months Insurance Care Teams Coal Hauler Relationship Specialty Start Date End Date Non-Staff, Provider PCP - General UNKNOWN PHYSICIAN SPECIALTY 01/05/25
--- OUTSIDE RECORDS SUMMARY | 2025-03-01 01:42 | XMS_ITS | Clinical Summary ---
Author Organization [facility] [employer] Address [address] [address] Care Team Providers Care Grinder Machine Knife Setter Name Role Phone [facility], [address] [place] [address] Primary Care Prov ider Source Comments [facility],non-owned Affiliates and Associated Physician Practices is amultiple site organization consisting of ambulatory clinics and hospital sitesin [place], [place], [place] and [place]. This disclosure is being madepursuant to the Care Everywhere program and may not contain all information available regarding this patient. Last updated 18.[facility] [employer] Allergies No known active allergies Medications * [...] Description 01/19/2025 2:20 PM CDT Office Visit [facility] - Rheumatology [address] [place] [address] Bobby Pal DO Osteoarthritis of left hip, unspecified osteoarthritis type (Primary Dx); Osteoarthritis of both shoulders, unspecified osteoarthritis type; Elevated sedimentation rate; Elevated C-reactive protein (CRP) 01/14/2025 Telephone [facility] - Rheumatology [address] [place] [address] Bobby Pal DO Scheduling; Referral [...] RATE (EXT RESULT) Routine 12/30/2024 4:12 PM BUS AND TROLLEY DISPATCHER C-REACTIVE PROTEIN Routine 12/30/2024 4: 12 PM BUS AND TROLLEY DISPATCHER from Last 3 Months Results * ERYTHROCYTE SEDIMENTATION RATE (EXT RESULT) (12/30/2024 4:12 PM BUS AND TROLLEY DISPATCHER) Blood BLOOD SPECIMEN / Unknown us Scanned Document LAB - HEMATOLOGY ORDERABLES Fin al Result * C-REACTIVE PROTEIN (12/30/2024 4:12 PM BUS AND TROLLEY DISPATCHER) Blood BLOOD SPECIMEN / Unknown us Scanned Document LAB - CHEMISTRY ORDERABLES Nallely l Result from Last 3 Months Insurance [facility] Care Teams Grinder Machine Knife Setter Relationship Specialty Start Date End Date [facility], [facility] [address] [place] [address] PCP - General Family Medicine 01/19/25
--- OUTSIDE RECORDS SUMMARY | 2025-03-01 01:42 | XMS_ITS | Patient Health Record ---
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 [id number] [place], [place] [id number] Kurt Khan Self - patient is the insured 1 1 Medical (General) History Medical History History ICD Code Osteoarthritis Surgical History Surgery Date(Month/Year) Scheduled for Rt. Total hip replacement 01/2021 Vasectomy Hospitalization History Reason Date(Month/Year) see surgeries
--- NOTE | 2025-03-01 06:46 | WPDHPUPDATE1 ---
History and Physical Update Update Date/Time: 03/01/25 06:46 History and Physical has been reviewed, including an updated exam of the patient. There are NO changes in the patient's condition. Risks, benefits, and alternatives have been discussed and questions answered. Patient agrees to proceed with procedure.
--- NOTE | 2025-03-01 06:54 | WPDANESEPPF ---
Anes - Initial Pre Proc Eval Procedure: Operation Date: 03/01/25 07:30 Proposed Procedures p Left Total Hip Arthroplasty - Julio Leong MD Date/Time: 03/01/25 06:54 Surgeon: Julio Leong MD Pre Op Diagnosis: O A Left Hip Patient Data Age: 44 Gender: M Height: 1.68 m Weight: 77 kg Last Vital Signs Temp 36.8 C 02/16/25 13:52 Pulse 91 02/16/25 13:52 Resp 16 02/16/25 13:52 BP 124/83 02/16/25 13:52 Pulse Ox 100 02/16/25 13:52 O2 Del Method Room Air 02/16/25 13:52 Allergies Allergy/AdvReac Type Severity Reaction Status Date / Time No Known Allergies Allergy Unverified 02/16/25 13:46 Home Medications ?Medication ?Instructions ?Recorded ?Confirmed ?Type pantoprazole 40 mg tablet,delayed 40 mg PO QAM 01/26/25 02/16/25 History release tramadol 50 mg tablet 50 mg PO Q6H PRN pain 01/26/25 02/16/25 History hydrocortisone 1 % topical cream 1 applic topical BID PRN itching 02/16/25 02/16/25 History (Anti-Itch (hydrocortisone)) multivitamin (Daily Multi-Vitamin 1 tablet PO DAILY 02/16/25 02/16/25 History tablet) mupirocin 2 % topical ointment 1 applic topical BID #22 grams 02/18/25 02/18/25 Rx (Centany) Patient hx anesthesia problems: none Family hx anesthesia problems: none Results Review: All pre-operative results and documents have been reviewed as part of the pre-operative evaluation. [facility] Surgical History Surgical History (Updated 01/26/25 @ 13:31 by Julio Leong MD) History of hip replacement right Social History Social History (Updated 01/26/25 @ 13:19 by Karen Russell CMA) Smoking status: Never smoker Tobacco type: e-cigarettes/vaping Additional smoking assessment comments: MOSTLY STOPPED VAPING, LITTLE AMT LAST WEEK. STARTED ABOUT 1 1/2 YRS AGO. Alcohol intake: never Substance use: never Current Housing: Decline to Answer Concerned About Future Housing: Decline to Answer Difficulty Paying Gas/Electric Bills: Decline to Answer Difficulty Paying for Meds: Decline to Answer Currently Unemployed: Decline to Answer Education: Decline to Answer Difficulty w/ Childcare or Family Care: Decline to Answer Living arrangements: with family Additional living arrangements comments: [facility] [place] Spiritual care concerns: No Anes - Eval Final PreProcedure Day of Procedure 03/01/25 06:54 Patient weight: normal Heart: regular rate and rhythm Lungs: clear to auscultation and normal air movement Airway: Mallampati scale class 1 Neurological: alert and oriented Last oral intake: >/= 8 hours ASA classification: II Emergent: no Anesthetic plan: proceed Anesthesia type and monitoring: general ETT and standard monitoring Results Review: All pre-operative results and documents have been reviewed as part of the pre-operative evaluation. Informed Consent: The patient's anesthetic plan and its attendant risks and benefits were discussed with the patient/family/POA. Questions were solicited and answers provided to the satisfaction of the patient/family/POA.
[2025-03-01] MEDS: VANCOMYCIN 1,250 MG/NS 250 ML 1,250 MG/250 ML BAG 166.67 MG IVPB (07:00)
[2025-03-01] MEDS: TRANEXAMIC ACID 1,000MG/ISO100 1,000 MG/100 ML BAG 200 MG IVPB (07:00)
[2025-03-01] MEDS: ACETAMINOPHEN 500 MG TABLET 1000 MG PO (07:00)
[2025-03-01] MEDS: ceFAZolin 2 GM/D5W 50 ML 2 GM/50 ML BAG IVPB ×3 (07:30→23:37)
[2025-03-01] MEDS: BUPIVACAINE/EPINEPHRINE 0.5% 50 ML VIAL 20 ML INFILTRATE (08:19)
[2025-03-01] MEDS: TRANEXAMIC ACID 1,000 MG/10 ML AMPUL 1000 MG IV PUSH (09:15)
--- NOTE | 2025-03-01 09:15 | W.PM.PROC2 ---
Procedure Note - Detailed Date of Procedure 03/01/25 Pre-op Diagnosis Osteoarthritis Left Hip Post-op Diagnosis Same Procedure Performed LEFT Total Hip arthroplasty Surgeon Julio Leong MD Anesthesia General Indications Pain and Arthritis Description of Procedure Patient was brought to the operating room #8, and an anesthetic was administered. The patient was placed with the operative Hip up and sterilely prepped and draped in the usual manner. A longitudinal incision was performed. Dissection was carried down to the fascia. A Hardinge type approach was used and the femoral head was dislocated anteriorly. The Femoral head was removed a finger breath above the lesser trochanter. The acetabulum was serially reamed to accept a 54 component. This was impacted into place and secured with 2 25mm screws. A high wall liner was placed. The femur was reamed and broached to accept a 7 component which was impacted into place. A plus 3 head and neck were placed and the hip was put through full range of motion. Extra care was taken to minimize any leg lengthening. The hip was noted to be stable. The wounds were then closed in a layered fashion using #5 ethibond, 2 vicryl, 2-0 vicryl and nya. Patient left the operating room in satisfactory condition. Implants Biomet taper lock stem Darren multi hole cup Estimated Blood Loss 400 Drains No Packing No Pathology None sent Complications No immediate complications Condition Stable Disposition PACU [facility] Billing Surgery - Charge Forward: Surgery Billing ([id number] Total Hip)
[2025-03-01] MEDS: LACTATED RINGERS 1,000 ML 30 ML IV CONT ×2 (09:50→11:43)
[2025-03-01] MEDS: fentaNYL CITRATE INJ (*CRX) 100 MCG/2 ML VIAL 25 MCG IV PUSH ×2 (10:04→10:07)
[2025-03-01] MEDS: HYDROmorphone HCL INJ (*CRX) 1 MG/ML SYR 0.25 MG IV PUSH ×12 (10:24→12:21)
[2025-03-01] MEDS: CYCLOBENZAPRINE HCL 10 MG TABLET PO (11:33)
[2025-03-01] MEDS: KETOROLAC 30 MG/ML VIAL (*BKC) IV PUSH (11:57)
--- NOTE | 2025-03-01 13:32 | P.CONIM_ITS ---
Assessment and Plan Assessment and plan (1) Osteoarthritis of left hip: Code(s): M16.12 - Unilateral primary osteoarthritis, left hip Status: Acute Assessment and Plan: * Postop day 0 from elective left total hip arthroplasty with Dr. Leong * Continue incentive spirometry q.2 hours while awake * Continue neurovascular checks * Continue pain and nausea control * PT and OT ordered * Toe-touch weight-bearing status * Continue hip precautions * Saline lock IV when tolerating diet * DC Moore catheter * Apply ice as scheduled to decrease inflammation * Likely stable for discharge tomorrow (2) GERD (gastroesophageal reflux disease): Code(s): K21.9 - Gastro-esophageal reflux disease without esophagitis Status: Acute Assessment and Plan: * Protonix ordered HPI Date of Consult Consult date: 03/01/25 Requesting Physician: Julio Leong MD Primary Care Provider: SP[facility] Consult Narrative Narrative: Kurt Khan is a 44 year old male with a significant past medical history of GERD, psoriatic arthritis presented to the hospital for elective left total hip arthroplasty with Dr. Leong which was performed today. Patient denies any postop nausea, vomiting. He was able to advance his diet. He rates his pain in his left hip 6/10. He is tolerating ambulating with crutches in the room. We were consulted for medical management while inpatient. Review of Systems Review of Systems: All systems reviewed & are unremarkable except as noted in HPI and below PMFSH Past Medical History Medical History GERD (gastroesophageal reflux disease) Surgical History Surgical History History of hip replacement right Social History Social History Smoking status: Never smoker Tobacco type: e-cigarettes/vaping Additional smoking assessment comments: MOSTLY STOPPED VAPING, LITTLE AMT LAST WEEK. STARTED ABOUT 1 1/2 YRS AGO. Alcohol intake: never Substance use: never Do You Feel Safe in your Home?: Yes Lack of Transportation: No Lack of Food: Never True Current Housing: I Have Housing Concerned About Future Housing: No Difficulty Paying Gas/Electric Bills: No Difficulty Paying for Meds: No Currently Unemployed: No Education: Decline to Answer Difficulty w/ Childcare or Family Care: No Living arrangements: with family Additional living arrangements comments: AND CHLDREN Spiritual care concerns: No Meds Home Medications and Allergies Home Medications ?Medication ?Instructions ?Recorded ?Confirmed ?Type pantoprazole 40 mg tablet,delayed 40 mg PO QAM 01/26/25 02/16/25 History release tramadol 50 mg tablet 50 mg PO Q6H PRN pain 01/26/25 03/01/25 History hydrocortisone 1 % topical cream 1 applic topical BID PRN itching 02/16/25 02/16/25 History (Anti-Itch (hydrocortisone)) multivitamin (Daily Multi-Vitamin 1 tablet PO DAILY 02/16/25 02/16/25 History tablet) Allergies Allergy/AdvReac Type Severity Reaction Status Date / Time No Known Allergies Allergy Verified 03/01/25 07:22 Vital Signs Vital Signs - 24 hr 03/01/25 07:00 03/01/25 09:50 03/01/25 10:05 Temperature 98 F 97.5 F L Pulse Rate 98 86 92 Respiratory Rate 14 16 16 Blood Pressure 124/89 127/81 133/85 Pulse Oximetry 100 100 100 Oxygen Delivery Room Air Simple Face Mask Simple Face Mask Oxygen Flow Rate 6 6 03/01/25 10:20 03/01/25 10:35 03/01/25 10:50 Temperature Pulse Rate 99 97 113 H Respiratory Rate 11 L 11 L 14 Blood Pressure 118/68 112/63 124/79 Pulse Oximetry 100 100 94 Oxygen Delivery Room Air Room Air Room Air Oxygen Flow Rate 03/01/25 11:05 03/01/25 11:20 03/01/25 11:35 Temperature Pulse Rate 106 H 106 H 104 H Respiratory Rate 15 13 16 Blood Pressure 115/76 118/91 H 115/78 Pulse Oximetry 97 99 97 Oxygen Delivery Room Air Room Air Room Air Oxygen Flow Rate 03/01/25 11:50 03/01/25 12:05 03/01/25 12:20 Temperature 97.4 F L Pulse Rate 109 H 106 H 108 H Respiratory Rate 13 15 16 Blood Pressure 105/58 L 98/73 L 123/74 Pulse Oximetry 98 95 99 Oxygen Delivery Room Air Room Air Room Air Oxygen Flow Rate Exam Narrative: General: In no acute distress, well nourished Head: atraumatic, no encephalopathy Eyes: PERRLA, sclera clear ENT: moist mucous membranes, nasal passages clear Neck: supple, no JVD, no adenopathy, trachea midline Cardiac: Normal S1 and S2. Tachycardia 111-113, No murmur, gallops or friction rubs, peripheral pulses intact. Respiratory: Lungs clear to auscultation, no adventitious lung sounds, currently on room air Gastrointestinal: soft, non-distended, non-tender, normoactive bowel sounds. : voiding without difficulty. Extremities: moves all extremities well, no edema Skin: Surgical incision with dressing on the left hip Neuro: Alert and oriented x4, cranial nerves intact, no neuro deficits. Psych: normal mood, normal affect, interactive Results Imaging Radiologist's impression: SINGLE AP VIEW PELVIS Ordering provider: Julio Leong MD History: . LEFT TOTAL HIP . Comparison: None . FINDINGS: BONES: No acute fracture or dislocation. HIP JOINT SPACES: Bilateral hip arthroplasty. SACROILIAC JOINT SPACES/LUMBAR SPINE: The sacroiliac joint spaces are normal. Mild degenerative changes of the visualized lower lumbar spine. PUBIC SYMPHYSIS: Normal. SOFT TISSUES: Normal. IMPRESSION: No acute osseous abnormality pelvis. Bilateral hip arthroplasty. Reviewed, dictated and finalized at location A. EXAMINATION: XR surgery orthopedic DATE: 03/01/2025 09:15 INDICATION: Intraoperative assessment during left total hip arthroplasty TECHNIQUE: 2 views of the bilateral hips excluding the more cephalad pelvis were obtained during procedure performed by Dr. Leong. Radiologist was not present for the imaging or procedure. COMPARISON: 12/28/2024 FINDINGS: Unchanged right total hip arthroplasty which remains in near-anatomic alignment with no periprosthetic lucency to suggest loosening or infection. Interval placement of a left total hip arthroplasty with acetabular component affixed wit h at least a single screw as well as a femoral broach on the initial image. The arthroplasties completed with placement of the broach with a femoral component on the final image. Alignment appears near-anatomic. No fractures identified. There are residual prominent marginal osteophytes about the left acetabulum. Expected postoperative soft tissue gas about the left hip. IMPRESSION: 1. Expected appearance during left total hip arthroplasty which appears in near- anatomic alignment with no acute osseous abnormality. See procedure note for further detail. Reviewed, dictated and finalized at location B. Quality VTE Prophylaxis VTE prophylaxis: mechanical ordered Hospitalist MIPS Advance Care Plan I have confirmed that the patient's Advanced Care Plan is present, code status is documented, or surrogate decision maker is listed in patient medical record.: Yes Medication Reconciliation I have utilized all available resources to obtain, update and review the patients current medications (includes all prescriptions, OTC, herbals, cannabis, and nutritional supplements).: Yes
[2025-03-01] MEDS: HYDROcodone/acetaminophen (*CRX) 7.5-325 MG TABLET 1 TAB PO ×2 (14:00→19:56)
--- NOTE | 2025-03-01 15:59 | ADMGEN ---
This patient, Kurt Khan, was admitted to 3 [facility] Surg Room 328-01. Patient/family oriented to hospital policies and general routines including ID bracelet, bed and alarms, visiting hours, pain management, procedures, bathroom and other care routines, personal items, smoking policy, room service/diet, and visiting hours. Information on how to activate the Rapid Response Team has been discussed. Patient/Family are encouraged to report perceived risks to care and to ask questions if they do not understand what they are told or what they should do.
[2025-03-01] MEDS: SENNA/DOCUSATE SODIUM TABLET 2 TAB PO (17:50)
[2025-03-01] MEDS: RIVAROXABAN 10 MG TABLET PO (17:50)
[2025-03-01] MEDS: PANTOPRAZOLE 40 MG TABLET PO (17:50)
[2025-03-01] MEDS: HYDROmorphone HCL INJ (*CRX) 2 MG/ML VIAL 1 MG IV PUSH (22:56)
[2025-03-01] MEDS: HYDROcodone/acetaminophen (*CRX) 5-325 MG TABLET 1 TAB PO (23:37)
[2025-03-02 02:05] VITALS: BP 113/67; PULSE 100; RESP 20; TEMP 36.3; O2SAT 97
[2025-03-02] MEDS: HYDROmorphone HCL INJ (*CRX) 2 MG/ML VIAL 1 MG IV PUSH ×2 (02:49→05:04)
[2025-03-02] MEDS: HYDROcodone/acetaminophen (*CRX) 7.5-325 MG TABLET 1 TAB PO (05:11)
[2025-03-02] MEDS: ceFAZolin 2 GM/D5W 50 ML 2 GM/50 ML BAG IVPB (06:00)
[2025-03-02 06:01] VITALS: BP 129/76; PULSE 93; RESP 20; TEMP 36.3; O2SAT 98
[2025-03-02 06:35] LABS: Basophils Percent Auto 0.3 % (0.2-1.2); Eosinophils Absolute Auto 0.1 K/mm3 (0-0.3); Eosinophils Percent Auto 0.8 % (0-4.4); Hematocrit 33.4 % (42.0-52.0); Hemoglobin 10.7 g/dL (14.0-18.0); Immature Granulocyte Absolute 0.04 K/mm3 (0.00-0.031); Immature Granulocyte Percent A 0.4 % (0-0.5); Lymphocytes Absolute Auto 1.25 K/mm3 (0.9-3.2); Lymphocytes Percent Auto 12.5 % (18.3-44.2); Mean Corpuscular Volume 90.5 fl (80-100); Mean Platelet Volume 10.2 fl (7.4-10.4); Monocytes Absolute Auto 1.2 K/mm3 (0.1-0.6); Neutrophils Absolute Auto 7.4 K/mm3 (1.3-6.7); Platelet Count Result 209 k/mm3 (150-375); Red Blood Count 3.69 M/mm3 (4.6-6.20); Red Cell Distribution Width 12.5 % (11.5-14.5)
[2025-03-02 06:42] LABS: Anion Gap 5 mmol/L (4-12); Blood Urea Nitrogen 9 mg/dL (9-20); Calcium 8.2 mg/dL (8.4-10.2); Carbon Dioxide 32 mmol/L (22-30); Chloride 102 mmol/L (98-107); Estimated CRCL calculation 93 ml/min; Estimated Glomerular Filt Rate > 60; Glucose 96 mg/dL (65-110); Potassium 3.9 mmol/L (3.4-5.0); Sodium 139 mmol/L (137-145)
--- NOTE | 2025-03-02 07:32 | PM.PNORT ---
Progress Note: A&P Assessment and Plan (1) History of total left hip replacement: Code(s): Z96.642 - Presence of left artificial hip joint Status: Acute Assessment and Plan: Patient is status post left total hip arthroplasty. He is having some pain issues but seems to be getting better slowly but surely. He states that after is right hip he had significant pain issues as well. We will dismiss home today pending therapy. If he has any changes or problems she will call. Follow-up in 2 weeks for sutures out. Discussed. Subjective Subjective Date/Time Seen: 03/02/25 07:33 Post Op day: 1 Principal diagnosis: LEFT BORIS Review of Systems Musculoskeletal: Musculoskeletal: Reports myalgias, Reports arthralgias, Reports joint swelling and Reports stiffness Neurologic: Reports abnormal gait Exam Narrative: Dressing intact. Patient wiggles toes. Patient is able ambulate. Objective Data Vital Signs Vital Signs: Vital Signs - 24 hr 03/01/25 09:50 03/01/25 10:05 03/01/25 10:20 Temperature 97.5 F L Pulse Rate 86 92 99 Respiratory Rate 16 16 11 L Blood Pressure 127/81 133/85 118/68 Pulse Oximetry 100 100 100 Oxygen Delivery Simple Face Mask Simple Face Mask Room Air Oxygen Flow Rate 6 6 03/01/25 10:35 03/01/25 10:50 03/01/25 11:05 Temperature Pulse Rate 97 113 H 106 H Respiratory Rate 11 L 14 15 Blood Pressure 112/63 124/79 115/76 Pulse Oximetry 100 94 97 Oxygen Delivery Room Air Room Air Room Air Oxygen Flow Rate 03/01/25 11:20 03/01/25 11:35 03/01/25 11:50 Temperature Pulse Rate 106 H 104 H 109 H Respiratory Rate 13 16 13 Blood Pressure 118/91 H 115/78 105/58 L Pulse Oximetry 99 97 98 Oxygen Delivery Room Air Room Air Room Air Oxygen Flow Rate 03/01/25 12:05 03/01/25 12:20 03/01/25 13:00 Temperature 97.4 F L 98.2 F Pulse Rate 106 H 108 H 107 H Respiratory Rate 15 16 20 Blood Pressure 98/73 L 123/74 112/80 Pulse Oximetry 95 99 95 Oxygen Delivery Room Air Room Air Oxygen Flow Rate 03/01/25 13:15 03/01/25 13:24 03/01/25 13:38 Temperature 98.4 F Pulse Rate 114 H Respiratory Rate 20 Blood Pressure 114/82 Pulse Oximetry 94 Oxygen Delivery Room Air Room Air Oxygen Flow Rate 03/01/25 13:45 03/01/25 14:00 03/01/25 14:21 Temperature 98.6 F 98.4 F Pulse Rate 128 H 112 H Respiratory Rate 20 18 Blood Pressure 102/79 117/72 Pulse Oximetry 95 96 Oxygen Delivery Room Air Oxygen Flow Rate 03/01/25 18:00 03/01/25 22:21 03/02/25 02:05 Temperature 99.0 F 97.8 F 97.4 F L Pulse Rate 112 H 101 H 100 Respiratory Rate 18 20 20 Blood Pressure 119/66 111/64 113/67 Pulse Oximetry 97 96 97 Oxygen Delivery Oxygen Flow Rate 03/02/25 06:01 Temperature 97.3 F L Pulse Rate 93 Respiratory Rate 20 Blood Pressure 129/76 Pulse Oximetry 98 Oxygen Delivery Oxygen Flow Rate Intake/Output Intake/Output: Intake & Output 02/27/25 02/28/25 03/01/25 03/02/25 23:59 23:59 23:59 23:59 Intake Total 1440 50 Output Total 100 Balance 1440 -50 Meds/Results Medications: Active Medications Generic Name Dose Route Start Last Admin Trade Name Freq PRN Reason Stop Dose Admin Hydrocodone Bitart/Acetaminophen 1 tab 03/01/25 12:36 03/01/25 23:37 Hydrocodone/Acetaminophen (*Crx) 5-325 Mg Tablet PO 1 tab Q4H PRN Administration Pain Rated 4-6 Hydrocodone Bitart/Acetaminophen 1 tab 03/01/25 12:36 03/02/25 05:11 Hydrocodone/Acetaminophen (*Crx) 7.5-325 Mg Tablet PO 1 tab Q4H PRN Administration Pain Rated 7-10 Celecoxib 200 mg 03/02/25 09:00 Celecoxib 200 Mg Capsule PO DAILY JUSTA Hydromorphone HCl 0.5 mg 03/01/25 12:55 Hydromorphone Hcl Inj (*Crx) 2 Mg/Ml Vial IV PUSH Q2H PRN Breakthrough Pain Rated 4-6 or NPO Hydromorphone HCl 1 mg 03/01/25 12:56 03/02/25 05:04 Hydromorphone Hcl Inj (*Crx) 2 Mg/Ml Vial IV PUSH 1 mg Q2H PRN Administration Breakthrough Pain Rated 7-10 or NPO Cefazolin Sodium 2 gm in 50 mls @ 100 mls/hr 03/01/25 15:00 03/02/25 06:00 Ancef 2 Gm/D5w 50 Ml IVPB 03/02/25 07:29 100 mls/hr Q8H JUSTA Administration Ibuprofen 800 mg in 200 mls @ 400 mls/hr 03/01/25 12:36 Caldolor 800 Mg/200 Ml IVPB Q6H PRN Breakthrough Pain Rated 1-3 or NPO Naloxone HCl 0.1 mg 03/01/25 12:36 Naloxone Hcl 0.4 Mg/Ml Vial IV PUSH Q2M PRN Opiate Reversal Ondansetron HCl 4 mg 03/01/25 12:36 Ondansetron Inj 4 Mg/2 Ml Vial IV PUSH Q4H PRN Nausea And Vomiting Pantoprazole Sodium 40 mg 03/01/25 13:40 03/01/25 17:50 Pantoprazole 40 Mg Tablet PO 40 mg QAM JUSTA Administration Polyethylene Glycol 17 gm 03/02/25 09:00 Polyethylene Glycol 3350 17 Gm Powd.Pack PO QAM JUSTA Rivaroxaban 10 mg 03/01/25 19:00 03/01/25 17:50 Rivaroxaban 10 Mg Tablet PO 10 mg DAILY@1700 JUSTA Administration Senna/Docusate Sodium 2 tab 03/01/25 17:00 03/01/25 17:50 Senna/Docusate Sodium Tablet PO 2 tab BID JUSTA Administration Tramadol HCl 50 mg 03/01/25 12:36 Tramadol Hcl (*Crx) 50 Mg Tablet PO Q4H PRN Pain Rated 1-3 Radiology Results: ITS Impressions Intraoperative X-Ray 03/01/25 09:30 IMPRESSION: 1. Expected appearance during left total hip arthroplasty which appears in near-anatomic alignment with no acute osseous abnormality. See procedure note for further detail. Pelvis X-Ray 03/01/25 13:10 IMPRESSION: No acute osseous abnormality pelvis. Bilateral hip arthroplasty. Labs Labs: Laboratory Results - last 24 hr 03/02/25 06:13 WBC 10.0 RBC 3.69 L Hgb 10.7 L Hct 33.4 L MCV 90.5 MCH 29.0 MCHC 32.0 RDW 12.5 Plt Count 209 MPV 10.2 Immature Gran % (Auto) 0.4 Neut % (Auto) 74.0 H Lymph % (Auto) 12.5 L [place] % (Auto) 12.0 H Eos % (Auto) 0.8 Baso % (Auto) 0.3 Lymph # (Auto) 1.25 [place] # (Auto) 1.2 H Eos # (Auto) 0.1 Baso # (Auto) 0.0 Abs Immat Gran (auto) 0.04 H Absolute Neuts (auto) 7.4 H Absolute Nucleated RBC 0.000 Nucleated RBC % 0.0 Sodium 139 Potassium 3.9 Chloride 102 Carbon Dioxide 32 H Anion Gap 5 BUN 9 Creatinine 0.81 Estim Creat Clear Calc 93 Estimated GFR > 60 Glucose 96 Calcium 8.2 L
[2025-03-02] MEDS: SENNA/DOCUSATE SODIUM TABLET 2 TAB PO (08:14)
[2025-03-02] MEDS: CELECOXIB 200 MG CAPSULE PO (08:14)
[2025-03-02] MEDS: PANTOPRAZOLE 40 MG TABLET PO (08:14)
[2025-03-02] MEDS: HYDROcodone/acetaminophen (*CRX) 5-325 MG TABLET 1 TAB PO (08:14)
[2025-03-02] MEDS: polyethylene glycoL 3350 17 GM POWD.PACK PO (08:14)
--- NOTE | 2025-03-02 08:56 | P.PNIM_ITS ---
Progress Note: A&P Assessment and Plan (1) Osteoarthritis of left hip: Code(s): M16.12 - Unilateral primary osteoarthritis, left hip Status: Acute Assessment and Plan: * Postop day 0 from elective left total hip arthroplasty with Dr. Leong * Continue incentive spirometry q.2 hours while awake * Continue neurovascular checks * Continue pain and nausea control * PT and OT ordered * Toe-touch weight-bearing status * Continue hip precautions * Saline lock IV when tolerating diet * DC Moore catheter * Apply ice as scheduled to decrease inflammation * work with pt/ot and discharge later today * pain is well controlled * no bm yet but passing gas (2) GERD (gastroesophageal reflux disease): Code(s): K21.9 - Gastro-esophageal reflux disease without esophagitis Status: Acute Assessment and Plan: * Protonix ordered Time Spent With Patient Time with patient: 25 - 35 minutes Subjective Date/time seen: 03/02/25 08:56 Interval history: Kurt Khan is a 44 year old male with a significant past medical history of GERD, psoriatic arthritis presented to the hospital for elective left total hip arthroplasty with Dr. Leong 03/02. Patient denies any postop nausea, vomiting. He was able to advance his diet. No BM/s yet but passing gas. He is going to work with PT/OT this am and be discharged in the afternoon. Review of Systems Review of Systems: All systems reviewed & are unremarkable except as noted in HPI and below Exam Narrative: General: In no acute distress, well nourished Head: atraumatic, no encephalopathy Eyes: PERRLA, sclera clear ENT: moist mucous membranes, nasal passages clear Neck: supple, no JVD, no adenopathy, trachea midline Cardiac: Normal S1 and S2. Tachycardia 111-113, No murmur, gallops or friction rubs, peripheral pulses intact. Respiratory: Lungs clear to auscultation, no adventitious lung sounds, currently on room air Gastrointestinal: soft, non-distended, non-tender, normoactive bowel sounds. : voiding without difficulty. Extremities: moves all extremities well, no edema Skin: Surgical incision with dressing on the left hip Neuro: Alert and oriented x4, cranial nerves intact, no neuro deficits. Psych: normal mood, normal affect, interactive Objective Data Vital Signs Vital Signs: Vital Signs - 24 hr 03/01/25 09:50 03/01/25 10:05 03/01/25 10:20 Temperature 97.5 F L Pulse Rate 86 92 99 Respiratory Rate 16 16 11 L Blood Pressure 127/81 133/85 118/68 Pulse Oximetry 100 100 100 Oxygen Delivery Simple Face Mask Simple Face Mask Room Air Oxygen Flow Rate 6 6 03/01/25 10:35 03/01/25 10:50 03/01/25 11:05 Temperature Pulse Rate 97 113 H 106 H Respiratory Rate 11 L 14 15 Blood Pressure 112/63 124/79 115/76 Pulse Oximetry 100 94 97 Oxygen Delivery Room Air Room Air Room Air Oxygen Flow Rate 03/01/25 11:20 03/01/25 11:35 03/01/25 11:50 Temperature Pulse Rate 106 H 104 H 109 H Respiratory Rate 13 16 13 Blood Pressure 118/91 H 115/78 105/58 L Pulse Oximetry 99 97 98 Oxygen Delivery Room Air Room Air Room Air Oxygen Flow Rate 03/01/25 12:05 03/01/25 12:20 03/01/25 13:00 Temperature 97.4 F L 98.2 F Pulse Rate 106 H 108 H 107 H Respiratory Rate 15 16 20 Blood Pressure 98/73 L 123/74 112/80 Pulse Oximetry 95 99 95 Oxygen Delivery Room Air Room Air Oxygen Flow Rate 03/01/25 13:15 03/01/25 13:24 03/01/25 13:38 Temperature 98.4 F Pulse Rate 114 H Respiratory Rate 20 Blood Pressure 114/82 Pulse Oximetry 94 Oxygen Delivery Room Air Room Air Oxygen Flow Rate 03/01/25 13:45 03/01/25 14:00 03/01/25 14:21 Temperature 98.6 F 98.4 F Pulse Rate 128 H 112 H Respiratory Rate 20 18 Blood Pressure 102/79 117/72 Pulse Oximetry 95 96 Oxygen Delivery Room Air Oxygen Flow Rate 03/01/25 18:00 03/01/25 22:21 03/02/25 02:05 Temperature 99.0 F 97.8 F 97.4 F L Pulse Rate 112 H 101 H 100 Respiratory Rate 18 20 20 Blood Pressure 119/66 111/64 113/67 Pulse Oximetry 97 96 97 Oxygen Delivery Oxygen Flow Rate 03/02/25 06:01 Temperature 97.3 F L Pulse Rate 93 Respiratory Rate 20 Blood Pressure 129/76 Pulse Oximetry 98 Oxygen Delivery Oxygen Flow Rate Intake/Output Intake/Output: Intake & Output 02/27/25 02/28/25 03/01/25 03/02/25 23:59 23:59 23:59 23:59 Intake Total 1440 50 Output Total 100 Balance 1440 -50 Meds/Results Medications: Active Medications Generic Name Dose Route Start Last Admin Trade Name Freq PRN Reason Stop Dose Admin Hydrocodone Bitart/Acetaminophen 1 tab 03/01/25 12:36 03/02/25 08:14 Hydrocodone/Acetaminophen (*Crx) 5-325 Mg Tablet PO 1 tab Q4H PRN Administration Pain Rated 4-6 Hydrocodone Bitart/Acetaminophen 1 tab 03/01/25 12:36 03/02/25 05:11 Hydrocodone/Acetaminophen (*Crx) 7.5-325 Mg Tablet PO 1 tab Q4H PRN Administration Pain Rated 7-10 Celecoxib 200 mg 03/02/25 09:00 03/02/25 08:14 Celecoxib 200 Mg Capsule PO 200 mg DAILY JUSTA Administration Hydromorphone HCl 0.5 mg 03/01/25 12:55 Hydromorphone Hcl Inj (*Crx) 2 Mg/Ml Vial IV PUSH Q2H PRN Breakthrough Pain Rated 4-6 or NPO Hydromorphone HCl 1 mg 03/01/25 12:56 03/02/25 05:04 Hydromorphone Hcl Inj (*Crx) 2 Mg/Ml Vial IV PUSH 1 mg Q2H PRN Administration Breakthrough Pain Rated 7-10 or NPO Ibuprofen 800 mg in 200 mls @ 400 mls/hr 03/01/25 12:36 Caldolor 800 Mg/200 Ml IVPB Q6H PRN Breakthrough Pain Rated 1-3 or NPO Naloxone HCl 0.1 mg 03/01/25 12:36 Naloxone Hcl 0.4 Mg/Ml Vial IV PUSH Q2M PRN Opiate Reversal Ondansetron HCl 4 mg 03/01/25 12:36 Ondansetron Inj 4 Mg/2 Ml Vial IV PUSH Q4H PRN Nausea And Vomiting Pantoprazole Sodium 40 mg 03/01/25 13:40 03/02/25 08:14 Pantoprazole 40 Mg Tablet PO 40 mg QAM JUSTA Administration Polyethylene Glycol 17 gm 03/02/25 09:00 03/02/25 08:14 Polyethylene Glycol 3350 17 Gm Powd.Pack PO 17 gm QAM JUSTA Administration Rivaroxaban 10 mg 03/01/25 19:00 03/01/25 17:50 Rivaroxaban 10 Mg Tablet PO 10 mg DAILY@1700 JUSTA Administration Senna/Docusate Sodium 2 tab 03/01/25 17:00 03/02/25 08:14 Senna/Docusate Sodium Tablet PO 2 tab BID JUSTA Administration Tramadol HCl 50 mg 03/01/25 12:36 Tramadol Hcl (*Crx) 50 Mg Tablet PO Q4H PRN Pain Rated 1-3 Radiology Results: ITS Impressions Intraoperative X-Ray 03/01/25 09:30 IMPRESSION: 1. Expected appearance during left total hip arthroplasty which appears in near- anatomic alignment with no acute osseous abnormality. See procedure note for further detail. Pelvis X-Ray 03/01/25 13:10 IMPRESSION: No acute osseous abnormality pelvis. Bilateral hip arthroplasty. Labs Labs: Laboratory Results - last 24 hr 03/02/25 06:13 WBC 10.0 RBC 3.69 L Hgb 10.7 L Hct 33.4 L MCV 90.5 MCH 29.0 MCHC 32.0 RDW 12.5 Plt Count 209 MPV 10.2 Immature Gran % (Auto) 0.4 Neut % (Auto) 74.0 H Lymph % (Auto) 12.5 L Randall % (Auto) 12.0 H Eos % (Auto) 0.8 Baso % (Auto) 0.3 Lymph # (Auto) 1.25 Randall # (Auto) 1.2 H Eos # (Auto) 0.1 Baso # (Auto) 0.0 Abs Immat Gran (auto) 0.04 H Absolute Neuts (auto) 7.4 H Absolute Nucleated RBC 0.000 Nucleated RBC % 0.0 Sodium 139 Potassium 3.9 Chloride 102 Carbon Dioxide 32 H Anion Gap 5 BUN 9 Creatinine 0.81 Estim Creat Clear Calc 93 Estimated GFR > 60 Glucose 96 Calcium 8.2 L Quality VTE Prophylaxis VTE prophylaxis: mechanical ordered
[2025-03-02] MEDS: traMADol HCL (*CRX) 50 MG TABLET PO (09:12)
[2025-03-02] MEDS: IBUPROFEN IV 800 MG/200 ML 800 MG/200 ML BAG 400 MG IVPB (09:13)
[2025-03-02 10:21] VITALS: BP 134/74; PULSE 74; RESP 18; TEMP 36.6; O2SAT 96
== END 2025-03-02 10:55 | disposition home or self-care (01) ==
LOC: ANHSURGERY 06:04 → ANH3MEDSUR 12:38
PROVIDERS: Visit Provider Orthopaedic Surgery
PROC: (CPT 27130; principal; 2025-03-01 07:30)
DX: M16.12 Unilateral primary osteoarthritis, left hip (principal); K21.9 Gastro-esophageal reflux disease without esophagitis; L40.50 Arthropathic psoriasis, unspecified; F17.290 Nicotine dependence, other tobacco product, uncomplicated; Z79.891 Long term (current) use of opiate analgesic; Z98.890 Other specified postprocedural states; Z96.641 Presence of right artificial hip joint
CPT/HCPCS: 27130; 36415; 72170; 80048; 85025; 97110; 97116; 97161; 97165; 97530; 97535; 99199; A9270; C1713; C1776; J0171; J0690; J1100; J1171; J1741; J1885; J2003; J2250; J2371; J2405; J2704; J3010; J3370; J7120